=== PATIENT | female | born 1990 | race African-American/Black ===

== ENCOUNTER 2016-05-13 22:27 | Emergency (ER) | payer OTHER ==
[2016-05-13 22:40] VITALS: BP 125/73
--- NOTE | 2016-05-13 23:51 | ED AMS/SEIZURE/WEAK/DIZZY ---
History of Present Illness General Chief Complaint: General Adult Stated Complaint: PT HAS BEEN HAVING DIZZY SPELL Source: patient, family Exam Limitations: no limitations Vital Signs & Intake/Output Vital Signs & Intake/Output Vital Signs Date Time Temp Pulse Resp B/P Pulse O2 O2 Flow FiO2 Ox Delivery Rate 05/13 2240 98.1 57 20 125/73 Allergies Coded Allergies: Penicillins (Intermediate, RASH 05/14/16) Reconcile Medications Meclizine HCl 25 MG TABLET 1 TAB PO Q8 PRN dizziness Triage Note: PER PT DIZZY SPELLS X 3 TODAY ONCE WHEN LYING DOWN THEN WALKING WAS STUMBLING. TONIGHT DIZZY WHILE IN BED. HAD SOME DIARRHEA EARLIER TODAY. MENSES DUE Triage Nurses Notes Reviewed? yes : No Patient currently breastfeeds: No HPI: Patient is a 25-year-old female presents complaining of dizziness. Dizziness is room spinning sensation and when walking occasionally off balance sensation. Symptoms are currently mild, at times been severe. One episode of diarrhea and abdominal cramping today. Patient denies recent trauma, tinnitus, nasal congestion, fevers, chills, chest pain, palpitations. (KHURRAM BRADLEY) Past History Travel History Traveled to [place] past 21 day No Medical History Any Pertinent Medical History? none Neurological: NONE EENT: NONE Cardiovascular: NONE Respiratory: NONE Gastrointestinal: NONE Hepatic: NONE Renal: NONE Musculoskeletal: NONE Psychiatric: NONE Endocrine: NONE Surgical History Surgical History: non-contributory Psychosocial History What is your primary language Divehi Tobacco Use: Never used Family History Hx Contributory? No (KHURRAM BRADLEY) Review of Systems Review of Systems Constitutional: Denies: chills, fever. EENTM: Reports: no symptoms. Respiratory: Denies: cough, short of breath. Cardiovascular: Denies: chest pain, palpitations. GI: Reports: diarrhea (1 episode). Denies: abdominal pain, nausea, vomiting. Genitourinary: Reports: no symptoms. Musculoskeletal: Reports: no symptoms. Skin: Reports: no symptoms. Neurological/Psychological: Reports: no symptoms. Denies: headache, numbness, unable to move lower ext, unable to move upper ext. Hematologic/Endocrine: Reports: no symptoms. Immunologic/Allergic: Reports: no symptoms. (KHURRAM BRADLEY) Physical Exam Physical Exam General Appearance: well developed/nourished, alert, awake Head: atraumatic, normal appearance Eyes: Bilateral: normal appearance, PERRL, EOMI. Ears, Nose, Throat: normal pharynx, normal ENT inspection, hearing grossly normal Neck: normal inspection, supple, full range of motion Respiratory: normal breath sounds, chest non-tender, no respiratory distress, lungs clear Cardiovascular: regular rate/rhythm (no appreciable murmur) Gastrointestinal: soft, non-tender Back: normal inspection, normal range of motion Extremities: normal range of motion Neurologic/Psych: no motor/sensory deficits, awake, alert, oriented x 3, normal gait, normal mood/affect, doormaker II-XII nml as tested Skin: intact, normal color, warm/dry Lymphatic: no anterior cervical edgardo Core Measures ACS in differential dx? No CVA/TIA Diagnosis: No Severe Sepsis Present: No Septic Shock Present: No (ANKITA LLYE,KHURRAM) Progress Differential Diagnosis: arrythmia, benign positional vertigo, CVA/stroke, intracranial Hem., intracranial mass/tumor, post-traumatic vertigo, seizure disorder, subarachnoid Hem., vertebrobasilar insuff Plan of Care: Orders Procedure Date/time Status COMPREHENSIVE METABOLIC PANEL 05/13 2348 Complete CBC WITHOUT DIFFERENTIAL 05/13 2348 Complete URINE 05/13 2328 Complete URINALYSIS 05/13 2328 Complete EKG 05/13 2240 Active Laboratory Tests 05/14/16 0000: Anion Gap 7, Estimated GFR > 60, BUN/Creatinine Ratio 11.0, Glucose 92, Calcium 10.0, Total Bilirubin 0.3, AST 14, ALT 25, Alkaline Phosphatase 40, Total Protein 7.1, Albumin 4.1, Globulin 3.0, Albumin/Globulin Ratio 1.4, CBC w Diff NO MAN DIFF REQ, RBC 6.15 H, MCV 60.5 L, MCH 19.2 L, RDW 15.6 H, MPV 7.9, Gran % 53.3, Lymphocytes % 35.6, Monocytes % 8.2, Eosinophils % 2.3, Basophils % 0.6, Absolute Granulocytes 3.7, Absolute Lymphocytes 2.5, Absolute Monocytes 0.6 , Absolute Eosinophils 0.2, Absolute Basophils 0, PUBS MCHC 31.7 L 05/13/16 2331: Urinalysis LIGHT H, Urine Color YEL, Urine Clarity HAZY H, Urine pH 6.0, Ur Specific [place] >= 1.030, Urine Protein NEG, Urine Ketones NEG, Urine Nitrite NEG, Urine Bilirubin NEG, Urine Urobilinogen 0.2, Ur Leukocyte Esterase SMALL H , Ur Microscopic SEDIMENT EXAMINED, Urine RBC 1-3, Urine WBC 5-10 H, Ur Epithelial Cells MOD H, Urine Bacteria MOD H, Urine Mucus MOD H, Urine Hemoglobin MOD H, Urine Glucose NEG, Urine Test NEGATIVE 05/14/2016 12:18:40 AM: Patient reports dizziness is improved. Awaiting results of labs. Dizziness improvement with meclizine. No acute neurologic abnormalities. Patient appears stable for discharge. (KHURRAM BRADLEY) Initial ED EKG: normal axis, normal intervals, normal p-waves, normal QRS complex, normal sinus rhythm, no ST T wave changes (KHURRAM BRADLEY) Departure Departure Time of Disposition: 40 Disposition: HOME OR SELF CARE Condition: Stable Clinical Impression Primary Impression: Vertigo Referrals: KHURRAM WOODWARD MD (PCP/Family) Additional Instructions: Follow-up with your primary doctor if no improvement by Monday. Return to the ER if numbness, weakness, headache, chest pain or worsening of symptoms. Departure Forms: Customer Survey General Discharge Information Prescriptions: Current Visit Scripts Meclizine HCl 1 TAB PO Q8 PRN dizziness #12 TAB (KHURRAM BRADLEY) PA/INDUSTRIAL RECRUITER Co-Sign Statement Statement: ED Attending supervision documentation- [] I saw and evaluated the patient. I have also reviewed all the pertinent lab results and diagnostic results. I agree with the findings and the plan of care as documented in the PA's/INDUSTRIAL RECRUITER's documentation. X] I have reviewed the ED Record and agree with the PA's/INDUSTRIAL RECRUITER's documentation. [] Additions or exceptions (if any) to the PAs/INDUSTRIAL RECRUITER's note and plan are summarized below: [] (GONZALO CAAL,ANDI Thakkar)
[2016-05-14 00:08] LABS: ABSOLUTE BASOPHIL COUNT 0 /CUMM (0.0-0.2); ABSOLUTE EOSINOPHIL COUNT 0.2 /CUMM (0.0-0.7); ABSOLUTE GRANULOCYTE CT 3.7 /CUMM (1.4-6.5); ABSOLUTE LYMPH COUNT 2.5 /CUMM (1.2-3.4); ABSOLUTE MONOCYTE COUNT 0.6 /CUMM (0.10-0.60); BASOPHIL % 0.6 % (0.0-2.0); EOSINOPHIL % 2.3 % (0-5); GRANULOCYTE % 53.3 % (42.2-75.2); HEMATOCRIT 37.2 % (37-47); MEAN CORPUSCULAR HGB 19.2 PG (27.0-31.0); MEAN CORPUSCULAR HGB CONC 31.7 G/DL (33.0-37.0); MEAN CORPUSCULAR VOLUME 60.5 FL (81.0-99.0); MEAN PLATELET VOLUME 7.9 FL (7.4-10.4); PLATELET COUNT 276 /CUMM (130-400); RBC DISTRIBUTION WIDTH 15.6 % (11.5-14.5); RED BLOOD CELL CT 6.15 /CUMM (4.20-5.40); WHITE BLOOD CELL COUNT 6.9 /CUMM (4.8-10.8)
[2016-05-14] MEDS ORDERED: MECLIZINE HCL25 MG PO (00:42)
== END 2016-05-14 00:43 ==
LOC: ERH 22:27
PROVIDERS: Physician Assistant
DX: R42 Dizziness and giddiness (principal)
CPT/HCPCS: 81001; 81025; 93005; 93010